=== PATIENT | male | born 1980 | race Caucasian/White ===

== ENCOUNTER 2019-06-14 09:35 | Emergency (ER) | payer OTHER ==
[2019-06-14 09:43] VITALS: BP 162/90; PULSE 90; RESP 18; TEMP 98.2
[2019-06-14] MEDS ORDERED: diphenhydrAMINE 50 MG CAP PO STA (09:56)
[2019-06-14] MEDS ORDERED: methylPREDNISolone SOD SUCCI 125 MG/2 ML VIAL IM STA (09:56)
[2019-06-14] MEDS ORDERED: FAMOTIDINE 20 MG TAB PO STA (09:57)
--- NOTE | 2019-06-14 10:17 | ED ---
General Adult HPI - General Chief complaint: Allergic Reaction Stated complaint: Swelling/Allergic Reaction Time Seen by Provider: 06/14/19 09:45 Source: patient, RN notes reviewed Mode of arrival: ambulatory Limitations: no limitations - History of Present Illness Initial comments: 38-year-old male presents to the emergency department for a chief complaint of rash. Patient states that about 4 days ago he started to have hives on his legs. States that he thought this was because his daughters had their hair and not rinsed out the shower afterwards. However patient states that the hives have gone from his legs and started on his arms. States that for the past couple days he has had swelling of his lips on and off. States that 2 days ago he had lower lip swelling. Yesterday he had swelling of the left upper lip. Does have both resolved. He has not had any swelling of his tongue. No swelling of his throat. No difficulty swallowing or breathing. Patient states he has been taking Benadryl but it has not been helping. He did not start any new medications. Patient is not on an ZARINA inhibitor. Patient takes Norvasc however this is not a new med.Patient has no other complaints at this time including shortness of breath, chest pain, abdominal pain, nausea or vomiting, headache, or visual changes. - Related Data Home Medications Medication Instructions Recorded Confirmed amLODIPine [Norvasc] 5 mg PO DAILY 06/14/19 06/14/19 Previous Rx's Medication Instructions Recorded predniSONE 50 mg PO DAILY #5 tablet 06/14/19 Allergies Allergy/AdvReac Type Severity Reaction Status Date / Time No Known Allergies Allergy Verified 06/14/19 10:04 Review of Systems ROS Statement: Those systems with pertinent positive or pertinent negative responses have been documented in the HPI. ROS Other: All systems not noted in ROS Statement are negative. Past Medical History Past Medical History: Hypertension History of Any Multi-Drug Resistant Organisms: None Reported Past Surgical History: Orthopedic Surgery Past Psychological History: No Psychological Hx Reported Smoking Status: Current every day smoker Past Alcohol Use History: None Reported Past Drug Use History: Marijuana General Exam Limitations: no limitations General appearance: alert, in no apparent distress Head exam: Present: atraumatic, normocephalic, normal inspection Eye exam: Present: normal appearance, PERRL, EOMI. Absent: scleral icterus, conjunctival injection, periorbital swelling ENT exam: Present: normal exam, normal oropharynx (No swelling of the lips tongue or throat), mucous membranes moist, TM's normal bilaterally, normal external ear exam Neck exam: Present: normal inspection, full ROM. Absent: tenderness, meningismus, lymphadenopathy Respiratory exam: Present: normal lung sounds bilaterally. Absent: respiratory distress, wheezes, rales, rhonchi, stridor Cardiovascular Exam: Present: regular rate, normal rhythm, normal heart sounds. Absent: systolic murmur, diastolic murmur, rubs, gallop, clicks GI/Abdominal exam: Present: soft, normal bowel sounds. Absent: distended, tenderness, guarding, rebound, rigid Neurological exam: Present: alert Psychiatric exam: Present: normal affect, normal mood Skin exam: Present: urticaria (Patient has occasional urticaria on the bilateral upper thighs. Patient has urticaria noted of the right arm and hand with moderate edema. Compartments are soft. There is no evidence of secondary infection. No urticaria on the abdomen or back.) Course Vital Signs 06/14/19 09:40 Temperature 98.2 F Pulse Rate 90 Respiratory 18 Rate Blood Pressure 162/90 O2 Sat by Pulse 99 Oximetry Medical Decision Making - Medical Decision Making HPI and physical exam as documented. Patient denies any new medication init iation. He is not on an ZARINA inhibitor. All department are soft. Patient was given IM Solu-Medrol as well as Benadryl and Pepcid. I discussed continuing prednisone at home starting tomorrow. Discussed not taking any hot baths. If patient has any worsening symptoms such as swelling of the lips tongue or throat or worsening rash I did encourage him to return to the emergency Department immediately. Otherwise he will follow-up with his primary care provider. I discussed this case with attending Dr. Alfred who agrees with this assessment and treatment plan. Disposition Clinical Impression: Urticaria Disposition: HOME SELF-CARE Condition: Good Instructions (If sedation given, give patient instructions): General Allergic Reaction (ED) Additional Instructions: Take steroid as directed. Continue to take Benadryl every 6 hours. Follow-up with your doctor in one to 2 days. If you start to have worsening symptoms such as swelling of the lips tongue or throat or worsening rash return to the emergency department for further evaluation. Prescriptions: predniSONE 50 mg PO DAILY #5 tablet Is patient prescribed a controlled substance at d/c from ED?: No Referrals: Alessandro Navarro MD [Primary Care Provider] - 1-2 days Time of Disposition: 10:15
== END 2019-06-14 10:46 | disposition home or self-care (01) ==
LOC: EC 09:35
DX: L50.9 Urticaria, unspecified (principal); I10 Essential (primary) hypertension; F17.200 Nicotine dependence, unspecified, uncomplicated; Z79.899 Other long term (current) drug therapy
CPT/HCPCS: 99282; 96372; J2930